=== PATIENT | female | born 2000 | race Caucasian/White ===

== ENCOUNTER 2020-07-16 16:46 | Emergency (ER) | payer OTHER ==
--- NOTE | 2020-07-16 17:44 | ER Document Report ---
ED Medical Screen (RME) - General Chief Complaint: Vaginal Bleeding Stated Complaint: VAGINAL BLEEDING Time Seen by Provider: 07/16/20 17:37 Mode of Arrival: Ambulatory Information source: Patient Notes: HPI; 19-year-old female presents to the emergency room complaining of vaginal bleeding that started as spotting 2 days ago states the bleeding has gotten progressively worse. States she did a positive home test 9 days ago and repeated it on Thursday and they were both positive. Has appointment tomorrow with her primary care physician for confirmation of . Denies any cramping. She is a 2 para 1. Last menstrual cycle June 06. PE: Alert and oriented x3. Mild distress noted. Lungs: Clear to auscultation without rales, rhonchi, wheezes. Heart: Tachycardic without murmurs, rubs, gallops. I have greeted and performed a rapid initial assessment of this patient. A comprehensive ED assessment and evaluation of the patient, analysis of test results and completion of the medical decision making process will be conducted by additional ED providers. I have specifically instructed the patient or family members with the patient to immediately return to any nursing staff should anything change in the patient's condition or with their chief complaint. TRAVEL OUTSIDE OF THE [place] IN LAST 30 DAYS: No Physical Exam - Vital signs Vitals: Temp Pulse Resp BP Pulse Ox 99.2 F 117 H 18 147/76 H 99 07/16/20 16:50 07/16/20 16:50 07/16/20 16:50 07/16/20 16:50 07/16/20 16:50 Course - Vital Signs Vital signs: Temp Pulse Resp BP Pulse Ox 99.2 F 117 H 18 147/76 H 99 07/16/20 16:50 07/16/20 16:50 07/16/20 16:50 07/16/20 16:50 07/16/20 16:50
[2020-07-16 18:15] LABS: ABSOLUTE EOSINOPHILS # (AUTO) 0.1 10^3/uL (0.0-0.6); ABSOLUTE LYMPHOCYTES (AUTO) 1.6 10^3/uL (0.5-4.7); ABSOLUTE MONOCYTES (AUTO) 0.5 10^3/uL (0.1-1.4); BASOPHILS % (AUTO) 0.3 % (0-2); EOSINOPHILS % (AUTO) 0.8 % (0-6); HEMATOCRIT 39.2 % (36.0-47.0); HEMOGLOBIN 13.3 g/dL (12.0-15.5); LYMPHOCYTES % (AUTO) 19.4 % (13-45); MEAN CORPUSCULAR HEMOGLOBIN 28.7 pg (27.0-33.4); MEAN CORPUSCULAR HGB CONC 33.8 g/dL (32.0-36.0); MEAN CORPUSCULAR VOLUME 85 fl (80-97); MONOCYTES % (AUTO) 5.7 % (3-13); PLATELET COUNT 249 10^3/uL (150-450); RED BLOOD COUNT 4.62 10^6/uL (3.72-5.28); RED CELL DISTRIBUTION WIDTH 13.5 % (11.5-14.0); SEGMENTED NEUTROPHILS % (AUTO) 73.8 % (42-78); TOTAL CELLS COUNTED % (AUTO) 100 %; WHITE BLOOD COUNT 8.2 10^3/uL (4.0-10.5)
[2020-07-16 18:36] LABS: ALBUMIN 4.3 g/dL (3.5-5.0); ALKALINE PHOSPHATASE 83 U/L (38-126); ANION GAP 9 (5-19); ASPARTATE AMINO TRANSFERASE 21 U/L (14-36); BILIRUBIN,DIRECT 0.2 mg/dL (0.0-0.4); BILIRUBIN,TOTAL 0.5 mg/dL (0.2-1.3); BLOOD UREA NITROGEN 7 mg/dL (7-20); CALCIUM 9.8 mg/dL (8.4-10.2); CARBON DIOXIDE 25 mmol/L (22-30); CHLORIDE 105 mmol/L (98-107); GLUCOSE 96 mg/dL (75-110); POTASSIUM 4.2 mmol/L (3.6-5.0); TOTAL PROTEIN 6.9 g/dL (6.3-8.2)
--- NOTE | 2020-07-16 19:07 | RADIOLOGY REPORT (SQ) ---
EXAM DESCRIPTION: U/S OB TRANSVAG W/DOPPLER IMAGES COMPLETED DATE/TIME: 07/16/2020 6:55 pm REASON FOR STUDY: bleeding COMPARISON: None. TECHNIQUE: Dynamic and static grayscale images acquired of the pelvis via transvaginal approach and recorded on PACS. Additional selected color Doppler and spectral images recorded. LIMITATIONS: Dopplers unable to be obtained due to high ovarian position. FINDINGS: UTERUS: Contour normal. No mass. ENDOMETRIAL STRIPE: No focal or generalized thickening. No masses. CERVIX: 2 cm. No nabothian cysts. RIGHT OVARY AND DOPPLER: Normal size. No worrisome masses. Dopplers unable to be obtained due to high ovarian position. LEFT OVARY AND DOPPLER: Normal size. No worrisome masses.Dopplers unable to be obtained due to high o varian position. FREE FLUID: None noted. OTHER: No other significant finding. MEASUREMENTS: UTERUS: 7 x 4 x 5 cm ENDOMETRIAL STRIPE: 6 mm RIGHT OVARY: 2 x 2 x 1 cm LEFT OVARY: 3 x 2 x 1 cm CERVICAL LENGTH: 2 cm Closed. IMPRESSION: Unremarkable appearance of the uterus. No free fluid. Ovaries normal size. Dopplers u nable to be obtained due to high ovarian position. TECHNICAL DOCUMENTATION: JOB ID: [id number] [place]-72 2010 [employer]- All Rights Reserved Rev-02/26 Reading location - IP/workstation name: [email or web address]
--- NOTE | 2020-07-17 01:41 | ER Document Report ---
ED General - General Chief Complaint: Vaginal Bleeding Stated Complaint: VAGINAL BLEEDING Time Seen by Provider: 07/16/20 17:37 Primary Care Provider: KENDALL RODRIGUEZ MD [ACTIVE STAFF] - 07/20/20 CRYS AMYS MD [Primary Care Provider] - Follow up as needed Mode of Arrival: Ambulatory TRAVEL OUTSIDE OF THE [place] IN LAST 30 DAYS: No - HPI Notes: Patient is a 19-year-old healthy female who is a G2, P1 and presents with vaginal bleeding. Patient states that she began spotting on Thursday. She states she had this with her previous and was not concerned. The next day, she states she had some clots that were bright red. Patient states she has used 1-2 pads a day that are not fully soaked. She denies any abdominal cramping. Patient has not had any urinary symptoms. No fevers or chills. Patient had positve test at home. She has an appointment with her PCP tomorrow to confirm the . She has not seen an OB yet for this . Past Medical History - General Information source: Patient - Social History Smoking Status: Never Smoker Chew tobacco use (# tins/day): No Frequency of alcohol use: None Drug Abuse: None Family History: Reviewed & Not Pertinent Past Surgical History: Reports: Hx Section Review of Systems - Review of Systems Notes: CONSTITUTIONAL: No fever, fatigue or weight loss. SKIN: No rash. HENT: No congestion, ear pain, or sore throat. EYES: No recent vision problems or eye pain. ENDOCRINE: No thyroid problems. No polyuria or polydipsia. CARDIOVASCULAR: No chest pain or edema. RESPIRATORY: No cough, shortness of breath, congestion, or wheezing. GASTROINTESTINAL: No abdominal pain, nausea, vomiting, bloody stools or diarrhea. GENITOURINARY: No dysuria. Positive for vaginal bleeding. MUSCULOSKELETAL: No joint pain or swelling. LYMPHATIC: No swollen glands. NEUROLOGIC: No seizures. No headache, focal weakness or sensory changes. HEMATOLOGIC: No unusual bruising or bleeding. PSYCHIATRIC: No depression or anxiety. Physical Exam - Vital signs Vitals: Temp Pulse Resp BP Pulse Ox 99.2 F 117 H 18 147/76 H 99 07/16/20 16:50 07/16/20 16:50 07/16/20 16:50 07/16/20 16:50 07/16/20 16:50 - Notes Notes: VITAL SIGNS: Within normal limits. GENERAL: No acute distress, non-toxic appearance. HEAD: Normal with no signs of head trauma. EYES: EOMI, conjunctiva normal, no discharge. EARS: Hearing grossly intact. NOSE: Normal. THROAT: Oropharynx is normal. NECK: Normal range of motion, no tenderness, supple, no lymphadenopathy, No adenopathy, no JVD. CHEST: Clear breath sounds bilaterally. No wheezes, rales, or rhonchi. CARDIAC: Regular rate and rhythm. S1 and S2, without murmurs, gallops, or rubs. VASCULAR: No Edema. ABDOMEN: Normal and soft with no tenderness, no masses or pulsatile masses. GENITOURINARY: Normal, No tenderness LYMPATHTIC: No lymphadenopathy noted. MUSCULOSKELETAL: Good range of motion of all major joints. Extremities without clubbing, cyanosis or edema. NEUROLOGICAL: Alert and oriented x 3. No focal sensory or strength deficits. Speech normal. Follows commands appropriately. PSYCHIATRIC: Normal Affect, judgement and mood. SKIN: Normal appearance with no rashes or lesions. Course - Re-evaluation Re-evalutation: 07/17/20 02:45 Patient has a positive serum qualitative hCG. Her quantitative is lower than the necessary number needed. Possible etiology could be due to early versus threatened miscarriage. Ultrasound was unremarkable. There was no evidence of on the ultrasound. She is alert and in no acute distress. She is denying any abdominal pain. I did obtain a urinalysis which shows some slight bacteria. As she is , I will treat with Keflex. Does not require RhoGam. Patient was referred to [facility]. She was instructed that she needs a follow-up hCG in 2 days. Patient was given strict return precautions. She is very agreeable to the plan. - Vital Signs Vital signs: Temp Pulse Resp BP Pulse Ox 98.6 F 94 18 118/68 98 07/17/20 02:30 07/17/20 02:30 07/17/20 02:30 07/17/20 02:30 07/17/20 02:30 - Laboratory Result Diagrams: 07/16/20 18:04 07/16/20 18:04 Laboratory results interpreted by me: 07/16/20 07/17/20 18:04 01:14 Serum HCG, Qual POSITIVE H Urine Protein 30 H Urine Blood LARGE H Ur Leukocyte Esterase TRACE H Discharge - Discharge Clinical Impression: Vaginal bleeding affecting early , Threatened miscarriage in early Urinary tract infection Qualifiers: Urinary tract infection type: site unspecified Hematuria presence: without hematuria Qualified Code(s): N39.0 - Urinary tract infection, site not specified Condition: Stable Disposition: HOME, SELF-CARE Instructions: Bleeding During Early ([facility]), Threatened Miscarriage ([facility]) Additional Instructions: Please follow-up with the [facility] in 2 days as you will need a repeat hCG. Please return to the ER for any abdominal pain, worsening bleeding, or any other symptoms. Prescriptions: Cephalexin Monohydrate [Keflex 500 mg Capsule] 500 mg PO BID 7 Days #14 capsule Referrals: CRYS MAYS MD [Primary Care Provider] - Follow up as needed KENDALL RODRIGUEZ MD [ACTIVE STAFF] - 07/20/20
[2020-07-17 01:42] LABS: APPEARANCE,URINE SLIGHTLY-CLOUDY; BILIRUBIN,URINE NEGATIVE (NEGATIVE); COLOR,URINE YELLOW; GLUCOSE, URINE NEGATIVE (NEGATIVE); KETONES,URINE NEGATIVE (NEGATIVE); LEUKOCYTE ESTERASE,URINE TRACE (NEGATIVE); NITRITE,URINE NEGATIVE (NEGATIVE); PROTEIN,URINE 30 mg/dL (NEGATIVE); URINE SPECIFIC GRAVITY 1.014; UROBILINOGEN,URINE NEGATIVE mg/dL (<2.0)
[2020-07-17 02:32] VITALS: BP 118/68
== END 2020-07-17 02:34 | disposition home or self-care (01) ==
LOC: ER 16:46
DX: O20.0 Threatened abortion (principal); O23.41 Unspecified infection of urinary tract in pregnancy, first trimester; Z3A.08 8 weeks gestation of pregnancy
CPT/HCPCS: 36415; 76817; 80053; 81001; 84702; 84703; 85025; 86900; 86901; 93976; 99284